=== PATIENT | female | born 2005 ===

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

== ENCOUNTER 2025-04-15 10:39 | Outpatient (CLI) | payer OTHER | END 2025-04-15 10:44 | disposition home or self-care (01) | LOC: SONOGRAMA 10:39 | PROVIDERS: ATTEND Obstetrics & Gynecology Gynecology | DX: R10.817 Generalized abdominal tenderness (principal); L68.0 Hirsutism; R10.2 Pelvic and perineal pain ==